=== PATIENT | male | born 1990 | race Caucasian/White ===

== ENCOUNTER 2018-10-27 18:22 | Emergency (ER) | payer OTHER ==
[2018-10-27] MEDS ORDERED: ACETAMINOPHEN 325 MG TABLET PO ONE (18:57)
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
[2018-10-27 20:02] VITALS: BP 104/55
== END 2018-10-27 20:02 | disposition home or self-care (01) ==
LOC: ER 18:22
DX: M54.2 Cervicalgia (principal); M54.6 Pain in thoracic spine; V89.2XXA Person injured in unspecified motor-vehicle accident, traffic, initial encounter
CPT/HCPCS: 72125; 99284

== ENCOUNTER 2019-11-05 21:03 | Emergency (ER) | payer OTHER ==
[2019-11-06] MEDS ORDERED: KETOROLAC TROMETHAMINE INJ/PF 30 MG/1 ML SDV IV ONE (00:09)
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
[2019-11-06 02:00] VITALS: BP 132/69
== END 2019-11-06 02:01 | disposition home or self-care (01) ==
LOC: ER 21:03
DX: S16.1XXA Strain of muscle, fascia and tendon at neck level, initial encounter (principal); S29.012A Strain of muscle and tendon of back wall of thorax, initial encounter; S40.012A Contusion of left shoulder, initial encounter; V43.52XA Car driver injured in collision with other type car in traffic accident, initial encounter; M50.321 Other cervical disc degeneration at C4-C5 level; F17.200 Nicotine dependence, unspecified, uncomplicated
CPT/HCPCS: 99283; 96374; 72050; 73030; 72070; J1885